=== PATIENT | male | born 1940 | race Caucasian/White ===

== ENCOUNTER 2023-08-23 07:36 | Outpatient (REF) | payer MEDICARE, SELFPAY ==
--- NOTE | ~2023-08-23 | XR_ITS ---
EXAMINATION: XR KNEE, LEFT CLINICAL INFORMATION: Left knee pain. COMPARISON: None available. TECHNIQUE: Three views of the left knee. FINDINGS: Moderate medial compartment joint space narrowing. Small tricompartmental marginal osteophytes. No acute fracture or dislocation. No concerning lytic or blastic osseous lesion. Superior and inferior patellar enthesophytes. No significant joint effusion. Atherosclerotic calcifications. XR/XR knee LT 3V IMPRESSION: Moderate medial as well as mild patellofemoral and lateral compartment osteoarthritis.
== END 2023-08-23 07:37 | disposition home or self-care (01) ==
LOC: HO.HOSX 07:36
PROVIDERS: Visit Provider Orthopaedic Surgery
DX: M25.562 Pain in left knee (principal); M79.604 Pain in right leg; M79.605 Pain in left leg; M54.50 Low back pain, unspecified
CPT/HCPCS: 73562; 99212

== ENCOUNTER 2023-08-23 07:46 | Outpatient (AMB) | payer MEDICARE, SELFPAY ==
--- NOTE | 2023-08-23 08:02 | A.OFFVIS_ITS ---
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 He also reports intermittent left thumb pain and left knee pain. He did undergo left knee arthroscopic surgery in approximately 2014. He got fairly good relief from that surgery initially. He has had cortisone injections in the past which gave him fairly good relief. He has tried Tylenol and anti-inflammatory medicines which gave him minimal relief. He also reports intermittent weakness in his legs. He has not had low back surgery in the past. He has done physical therapy which aggravated his back pain. Allergies No Known Allergies Allergy (Verified 08/23/23 08:12) Medication List - Last Reconciled 08/23/23 by Mohsen Mcqueen MD amlodipine 10 mg PO DAILY chlorthalidone 25 mg PO DAILY glipizide ER 5 mg PO DAILY lisinopril 30 mg PO DAILY metoprolol succinate ER 50 mg PO DAILY simvastatin 20 mg PO BEDTIME sitagliptin phosphate (Januvia) 25 mg PO DAILY tramadol 50 mg PO Q4H PRN zolpidem 5 mg PO BEDTIME PRN PFSH Social History (Updated 08/23/23 @ 08:12 by Corina Ozuna) Alcohol intake: never Patient Tobacco Use Status: Never used Tobacco Physical Exam Vital Signs: BMI result Body Mass Index 37.3 Const Other: Well-nourished well-developed very friendly male awake alert and oriented x3 in no acute distress Back/Spine/Pelvis Other: Low back examination shows bilateral paraspinal muscle tenderness, pain with range of motion, positive straight leg raise test bilaterally at 70 degrees, 4/5 strength with testing of his bilateral hip flexors and knee extensors Extrem Other: Left knee examination shows a minimal effusion, mild crepitus with range of motion, mild discomfort with range of motion, no instability Results Reviewed Results Reviewed: X-rays of the patient's left knee show moderate joint space narrowing, subchondral sclerosis, no acute bony abnormalities Assessment & Plan Assessment & Plan (1) Left knee pain: Code(s): M25.562 - Pain in left knee Category: Medical (2) Low back pain: Code(s): M54.50 - Low back pain, unspecified Category: Medical Plan Mr. Becerril presents with progressively worsening low back pain which radiates down both of his legs possibly due to lumbar stenosis or a disc herniation. Thus, I will send the patient for an MRI of his lumbar spine for further evaluation. Also has intermittent left knee discomfort due to degenerative joint disease. At this point the patient's knee discomfort is tolerable to him. We will hold off on a cortisone injection. I will see him back once his MRI is completed to discuss the findings and treatment options. The patient also has intermittent discomfort in his left thumb. Thus, I will have him evaluated by Dr. Hamilton. Feel free to call me at any time should questions regarding his orthopedic management arise. I spent 20 minutes in reviewing the patient's records and imaging studies, seeing the patient and documenting in the medical record. Orders: Orders XR knee LT 3V Today M25.562 - Pain in left knee MR lumbar spine wo con Today M54.50 - Low back pain, unspecified, M79.604 - Pain in right leg, M79.605 - Pain in left leg Coding Level of Care Code Est Pt Level 3 (51193) Diagnoses Left knee pain M25.562 Low back pain M54.50
[2023-08-23 08:13] VITALS: BMI 37.3
== END 2023-08-23 08:30 | disposition home or self-care (01) ==
PROVIDERS: PCP Internal Medicine; Visit Provider Orthopaedic Surgery
DX: M25.562 Pain in left knee (principal); M54.50 Low back pain, unspecified
CPT/HCPCS: 99213

== ENCOUNTER 2023-09-22 09:00 | Outpatient (AMB) | payer MEDICARE, SELFPAY ==
--- NOTE | 2023-09-22 09:18 | MHC.OFFVIS ---
Intake Visit Reasons: New prob- Left thumb pain per DR Intake Note: Philippe is a 83 yo right hand dominant male who presents today with a new problem of left thumb pain that began approximately 3 months. Patient reports having pain but it comes and goes. Patient describes having sharp pain with certain way. He mentions that he is not taking anything for the pain. Currently he is not having pain but when he does very sharp. Allergies No Known Allergies Allergy (Verified 09/22/23 09:22) HPI HPI New prob- Left thumb pain per DR: Details: Patient is an 83-year-old male who presents for an evaluation of intermittent thumb pain on the dorsal aspect of the left thumb, ongoing for approximately 2-3 months. The patient reports that he notices pain in the center of the dorsal aspect of the proximal phalanx of the left thumb occasionally with range of motion, but the patient reports that he has not had any pain at this time. The patient reports that he has no decreased range of motion from baseline, and was only concern that he may potentially have a fracture or dislocation on his x-rays. Patient denies any numbness or tingling in his left hand. No other acute complaints or concerns at this time. [facility] Social History (Updated 09/22/23 @ 09:23 by Corina Ozuna) Alcohol intake: never Patient Tobacco Use Status: Never used Tobacco Current occupational status: retired Current occupation: right hand dominant Review of Systems Const All systems reviewed & are unremarkable except as noted in HPI and below Physical Exam Extrem Other: Patient is alert, oriented, and in no acute distress. Neuro: Median, ulnar, radial nerves motor and sensory intact and sensation is normal to the tips of all digits. Vascular: Cap refill brisk Pain: Patient reports minor discomfort along the dorsal aspect of the left thumb with flexion Patient also reports some discomfort along the ulnar aspect of the left thumb with extension Completely nontender to palpation ROM: Patient is able to make a closed fist Good finger cross All other [id number]-bt-[id number] full and intact Skin: No lacerations or abrasions. General: No ecchymosis, erythema, or evidence of infection. Psych: Appears grossly normal Affect normal Attitude cooperative Results Reviewed Results Reviewed: X-rays obtained in the office today and independently reviewed by me, Austyn Mcgee PA-C, demonstrate very minor arthritic changes of the IP joint of the left thumb. No fracture or acute bony abnormality noted. Assessment & Plan Assessment & Plan (1) Pain of left thumb: Code(s): M79.645 - Pain in left finger(s) Category: Medical Plan 1. Left thumb pain At this time, due to negative x-rays and no concerning findings on physical exam, no acute medical or surgical intervention is indicated in this patient at this time Patient is offered occupational hand therapy for improvement of range of motion, strengthening, stabilization of left thumb, but declines at this time Patient is provided with comfort cool left thumb brace to wear with daytime activities while his thumb is bothering him Patient is also advised to continue with conservative pain management methods, such as rest, ice, compression, elevation, and [id number] medication namely Tylenol and ibuprofen Patient is amenable to this Patient will follow-up p.r.n. with any acute concerns Orders: Orders XR hand LT min 3V Today M79.642 - Pain in left hand Coding Level of Care Code Est Pt Level 3 (60134) Diagnoses Pain of left thumb M79.645
== END 2023-09-22 09:43 | disposition home or self-care (01) ==
PROVIDERS: PCP Internal Medicine
DX: M79.645 Pain in left finger(s) (principal)
CPT/HCPCS: 99213

== ENCOUNTER 2023-09-22 09:09 | Outpatient (REF) | payer MEDICARE, SELFPAY ==
--- NOTE | ~2023-09-22 | XR_ITS ---
EXAMINATION: XR HAND, LEFT CLINICAL INFORMATION: Left hand pain. COMPARISON: None available. TECHNIQUE: 5 views of the left hand. FINDINGS: Degenerative changes are present at the interphalangeal joints which appear most marked at the DIP joint of the fifth digit. The MCP joints are unremarkable. No significant degenerative changes are seen in the wrist. No fractures or dislocations. Marked vascular calcification is present. XR/XR hand LT min 3V IMPRESSION: Degenerative changes in the hand as described above. No acute fracture. Electronically signed by: Jose Luis Jennings MD 10/21/2023 09:58 PM EDT
== END 2023-09-22 09:10 | disposition home or self-care (01) ==
LOC: HO.HOSX 09:09
PROVIDERS: Visit Provider Orthopaedic Surgery
DX: M79.642 Pain in left hand (principal); M79.645 Pain in left finger(s)
CPT/HCPCS: 73130; 99212

== ENCOUNTER → 2023-12-09 08:36 | Outpatient (BNV) | payer MEDICARE, SELFPAY | PROVIDERS: PCP Internal Medicine; Visit Provider Radiology Diagnostic Radiology | DX: M51.362 Other intervertebral disc degeneration, lumbar region with discogenic back pain and lower extremity pain (principal) | CPT/HCPCS: 72148 ==

== ENCOUNTER 2023-12-09 08:49 | Outpatient (REF) | payer MEDICARE, SELFPAY ==
--- NOTE | ~2023-12-09 | MR_ITS ---
EXAMINATION: MR LUMBAR SPINE WITHOUT CONTRAST CLINICAL INFORMATION: Back pain radiating to right leg. COMPARISON: No prior available. TECHNIQUE: Multiplanar multisequence MR imaging of the lumbar spine was done without IV contrast. Examination was performed on a 1.5 Sindhu Siemens magnet, utilizing standard sequences. 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 FINDINGS: CORONAL ALIGNMENT: -There is a minimal levoconvex scoliosis, apex at L4. SAGITTAL ALIGNMENT: - There is a normal lumbar lordosis. -There is a 3 mm retrolisthesis of L2 on L3, degenerative. Severe intervening disc space loss with disc vacuum phenomenon. -There is a 2 mm anterolisthesis of L3 on L4. -Alignment is otherwise anatomic. LUMBOSACRAL JUNCTION: -Normal. There are 5 ffa-eqx-vkocuhc lumbar-type vertebral bodies. VERTEBRAL BODIES/BONE MARROW: -There are no compression deformities. There are no fractures. -Prominent edematous endplate changes present at L2-3 oriented more significantly to the left. -Minimal edematous endplate changes at T12-L1, and L4-5. -There are Schmorl's node is in the superior and inferior endplate of L2. -No abnormal infiltrating bone marrow signal. DISCS: -Severe loss of disc height and signal at L2-3 with disc vacuum phenomenon. -There is otherwise mild to moderate diffuse disc space loss of height and signal with relative sparing of T12-L1, and L1-2. SPINAL CANAL: -No abnormal developmental findings. CONUS MEDULLARIS: -Terminates at T12-L1 disc. Morphology and signal is normal. INTRADURAL NERVE ROOTS: - Within normal limits. Axial Disc Space Images: T12-L1: No central canal or neural foraminal narrowing. Normal facets. L1-L2: No central canal or neural foraminal narrowing. Mild degenerative hypertrophic facet changes. L2-L3: Severe degenerative disc changes with a degenerative 3 mm retrolisthesis. There is a diffuse disc osteophytic ridge complex present concentrically involving both foraminal zones left greater than right. Moderate hypertrophic degenerative facet changes are present with facet joint effusions, and mild posterior ligamentous thickening/infolding. Combination of findings is resulting in mild to moderate central canal stenosis, moderate left greater than right subarticular recess stenosis, and moderate right and severe left neural foraminal stenosis. L3-L4: Shallow concentric disc bulge present extending into both foraminal zones symmetrically. There is central annular fissuring. Moderate hypertrophic degenerative facet changes with prominent posterior ligamentous thickening/infolding. There is mild central canal narrowing, there is mild to moderate right subarticular recess narrowing, and there is moderate to severe bilateral neural foraminal stenosis. L4-L5: Shallow bulging disc present, without significant mass effect upon the thecal sac. Ptvb-xy-qyinemol hypertrophic degenerative facet changes bilaterally mild posterior ligamentous thickening/infolding. There is mild central canal narrowing, mild right greater than left subarticular recess narrowing, and moderate to severe right greater than left neural foraminal narrowing. L5-S1: Minimal physiologic disc bulge. Moderate degenerative facet changes right greater than left. No central canal stenosis. No subarticular recess stenosis. No significant neural foraminal stenosis. IMAGED SI JOINTS: -Mild degenerative changes bilaterally. PARAVERTEBRAL AND INCLUDED EXTRASPINAL SOFT TISSUES: -Incompletely imaged cyst in the right kidney midpole. Otherwise normal. MR/MR lumbar spine wo con IMPRESSION: 1. Mild to moderate lumbar spondylosis most significant at L2-3, where there is severe disc degeneration, moderate central canal stenosis, and moderate to severe bilateral subarticular recess stenosis left greater than right. Cannot exclude mild impingement of the left greater than right traversing L3 roots. 2. No additional significant central canal narrowing. 3. Multilevel degenerative facet change contributes to severe left neural foraminal stenosis at L2-3, moderate to severe bilateral at L3-4, and moderate to severe right greater than left at L4-5. 4. Prominent edematous endplate changes L2-3. 5. See see the body the report for details and ancillary findings. Electronically signed by: Bob Deras MD 02/01/2024 03:54 PM DOMINIQUE
== END 2023-12-09 08:50 | disposition home or self-care (01) ==
LOC: HO.MRI 08:49
PROVIDERS: PCP Internal Medicine; Visit Provider Orthopaedic Surgery
DX: M79.604 Pain in right leg (principal); M79.605 Pain in left leg; M54.50 Low back pain, unspecified
CPT/HCPCS: 72148

== ENCOUNTER 2024-02-07 09:04 | Outpatient (REF) | payer MEDICARE, SELFPAY | END 2024-02-07 09:05 | disposition home or self-care (01) | LOC: HO.HOSX 09:04 | PROVIDERS: PCP Internal Medicine; Referring Provider Orthopaedic Surgery; Visit Provider Physician Assistant | DX: M48.062 Spinal stenosis, lumbar region with neurogenic claudication (principal) | CPT/HCPCS: 99202 ==

== ENCOUNTER 2024-02-07 09:04 | Outpatient (AMB) | payer MEDICARE, SELFPAY ==
--- NOTE | 2024-02-07 09:05 | HO.SPINEOV ---
Vital Signs 02/07/24 09:08 Height 5 ft 7 in Weight 238 lb BMI 37.3 Intake Visit Reasons: LBP Intake Note: Mr. 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 Mcqueen, Thank you for referring Philippe to our office today. Philippe is a pleasant 83-year-old male who comes in today with a chief complaint of predominantly pain with ambulation. He does have a component of low back pain, but describes it as mild-moderate and states that it flares up 1st thing in the morning and gets better as the day progresses. When describing his pain with ambulation he states that he is able to walk a little less than half a block at a time, then he will begin experiencing a feeling of tiredness and aching pain in his bilateral anterior thighs. This worsens if he continues to ambulate. If he is able to rest for a period of time this pain will go away, and he can again walk a short distance until it flares back up. He denies any numbness/tingling associated with this pain. He reports that up until about a year ago he was a very active person, going to the horse races at [place] with his friends and walking outside regularly. Unfortunately his pain with ambulation has largely halted the meaningful activities he is able to engage in. He further reports that he is still able to do basic things like get his grocery shopping or going to the store, but he asked to utilize a shopping cart to brace himself on in order to get around. He denies any initial inciting incident and feels as though this has just slowly progressed over the last couple of years. He has been to physical therapy for this issue and felt he had to stop after a few sessions because of the pain in his thighs. He has tried dqet-cvr-ipwsanw medications including Tylenol, ibuprofen, and lidocaine patches. He has also attempted to take prescription tramadol in order to mitigate this pain without significant relief. PMH: Sling procedure to treat BPH, cardiac pacemaker placement 3 years ago, tonsillectomy with adenoid removal as a child, wisdom teeth removal at 13 years old, recurrent nephrolithiasis with stent placement (gets repeat CT scans every 2 years), knee arthroscopy. High blood pressure, T2DM (unknown last A1C), hyperlipidemia, insomnia. Social hx: The patient does not smoke, reports no substance use. Medications: Amlodipine, chlorthalidone, glipizide, lisinopril, metoprolol, simvastatin, Januvia, tramadol, zolpidem. Allergies: NKDA Physical exam: The patient has 5/5 strength in his upper and lower extremities. He is able to ambulate well, but does so slowly. He rises from a seated position via bracing himself on the chair. No significant sensational deficits. His reflexes are absent in the bilateral patella and Achilles, they are 2+ elsewhere. (-) bilateral straight leg raise, (-) Bright's, (-) clonus. Imaging review: MRI of the lumbar spine completed here at [facility] in November shows diffuse spondylosis of the lumbar spine. Most notably there is severe degenerative disc disease at L2-3 causing grade 1 spondylolisthesis alongside moderate right-sided and severe left-sided foraminal stenosis at this level. There is also a posterior disc bulge at L4-5 causing moderate right-sided foraminal stenosis at this level. Shmorl's node noted in endplate of L2. Impression: Teddy is a pleasant 83-year-old male who comes in today with a chief complaint of low-grade low back pain, and pain/difficulties with ambulation. In regards to his low back pain, it sounds more like it is osteoarthritis than it is neurogenic. It is worse 1st thing in the morning, and relieves with activity and ambulation. I believe this would be best treated with Tylenol and/or NSAIDs dependent on his ability to tolerate such medications. In terms of his difficulties with ambulation, this sounds like a classic case of neurogenic claudication due to nerve root impingement secondary to degeneration. It seems that the L2-3 level is the most likely causative agent of this. He has significant bilateral foraminal stenosis with a component of central canal stenosis, and appears to have a very slight listhesis at L2-3. We discussed the possibility of minimally invasive lumbar decompression at this level, which he was amenable to. I would like to send the patient for a set of dynamic x-rays, and obtain his primary care records in regards to his diabetes (A1C). While we do this I will discuss the case with Dr. Alexander. I will follow up with the patient regarding a surgical decision thereafter. Thank you for allowing us to care for your patient. The total time spent with this visit with this patient was 45 minutes reviewing history, physical exam, MRI imaging review, and implementation of treatment plan or further diagnostic testing. Reagan Alexander MD,PhD [facility] Coding Level of Care Code New Pt Level 4 (40340) Diagnoses Lumbar stenosis with neurogenic claudication M48.062
[2024-02-07 09:08] VITALS: BMI 37.3
--- OUTSIDE RECORDS SUMMARY | 2024-02-07 09:09 | XMS_ITS ---
Author Name [facility] Organization Unknown History of Medication Use Medication Directions Dispensed Refills Start Date End Date Status betamethasone dipropionate 0.05 % topical cream APPLY ONE APPLICATION EXTERNALLY TO RASH ON ABDOMEN ONCE OR TWICE A DAY NEEDED FOR ITCH UP TO 2 WEEKS ON, THEN 1 WEEK OFF 3 active fluorouracil 5 % topical cream APPLY SPARINGLY TO SUN-DAMAGED SKIN ON FACE AND SCALP TWO TIMES A DAY FOR 2 TO 4 WEEKS. EXPECT REDNESS, SCALING, AND IRRITATION. START 2 WEE 3 active Senna Plus 8.6 mg-50 mg tablet TAKE 1 TABLET BY MOUTH TWICE DAILY NEEDED FOR CONSTIPATION. 3 completed tramadol 50 mg tablet TAKE ONE TABLET BY MOUTH EVERY 4 HOURS NEEDED 3 active methylprednisolone 4 mg tablets in a dose pack TAKE SIX TABLETS FOR 1 DAY, THEN FIVE TABLETS FOR 1 DAY, THEN FOUR TABLETS FOR 1 DAY,THEN THREE TABLETS FOR 1 DAY, THEN TWO TABLETS FOR 1 DA 3 completed Januvia 25 mg tablet TAKE ONE TABLET BY MOUTH EVERY DAY 3 active oxycodone 5 mg capsule TAKE 1 CAPSULE BY MOUTH EVERY 4 HOURS NEEDED FOR PAIN. 3 completed sodium bicarbonate 650 mg tablet DISSOLVE AND TAKE ONE TABLET BY MOUTH FOUR TIMES A DAY 3 active Eliquis 2.5 mg tablet TAKE ONE TABLET BY MOUTH TWICE A DAY 3 active amlodipine 10 mg tablet TAKE ONE TABLET BY MOUTH EVERY DAY 3 active simvastatin 20 mg tablet TAKE ONE TABLET BY MOUTH ONCE DAILY IN THE EVENING 3 active tobramycin 0.3 %-dexamethasone 0.1 % eye drops,suspension INSTILL 1 DROP IN THE LEFT EYE FOUR TIMES A DAY FOR 10 DAYS 3 completed ketoconazole 2 % topical cream APPLY TO RASH ON GROIN TWO TIMES A DAY UNTIL CLEAR. USE WITH TRIAMCINOLONE CREAM 3 completed metoprolol succinate ER 25 mg tablet,extended release 24 hr TAKE ONE TABLET BY MOUTH EVERY DAY 3 active Kenalog 40 mg/mL suspension for injection Take 1 mL by injection route. 3 active triamcinolone acetonide 0.025 % topical cream APPLY SPARINGLY TO RASH ON GROIN TWO TIMES A DAY FOR 1-2 WEEKS. USE WITH KETOCONAZOLE 3 completed lidocaine (PF) 10 mg/mL (1 %) injection solution Take 2 mL by injection route. 3 active chlorthalidone 25 mg tablet TAKE ONE TABLET BY MOUTH EVERY DAY 3 active lisinopril 30 mg tablet TAKE 1 TABLET BY MOUTH ONCE DAILY 3 active glipizide ER 5 mg tablet, extended release 24 hr TAKE ONE TABLET BY MOUTH ONCE DAILY WITH BREAKFAST 3 active zolpidem 5 mg tablet TAKE ONE TABLET BY MOUTH EVERY DAY AT BEDTIME 3 active Problems Problem Status Onset Date Problem Type Date of Resoluti on Source Osteoarthritis of left knee joint active 2022-09-01 ProblemAct ENS_AONECT
== END 2024-02-07 10:28 | disposition home or self-care (01) ==
PROVIDERS: PCP Internal Medicine; Referring Provider Orthopaedic Surgery; Visit Provider Physician Assistant
DX: M48.062 Spinal stenosis, lumbar region with neurogenic claudication (principal)
CPT/HCPCS: 99204

== ENCOUNTER 2024-02-15 11:51 | Outpatient (REF) | payer MEDICARE, SELFPAY ==
--- NOTE | ~2024-02-15 | XR_ITS ---
EXAMINATION: XR LUMBAR SPINE 4 OR MORE VIEWS HISTORY: M48.062 - Spinal stenosis, lumbar region with neurogenic claudication COMPARISON: Correlation is made with an MRI of the lumbar spine dated 12/09/2023. FINDINGS: AP, and neutral, flexion, and extension lateral views of the lumbar spine were obtained. Osseous mineralization is normal. The vertebral bodies maintain normal height without evidence of fracture. There is slight anterolisthesis of L4 on L5 which does not change with flexion or extension. There is diffuse moderate degenerative disc disease with disc space narrowing and osteophyte formation. There is osteoarthritis of the facet joints. There is vascular calcification. XR/XR lumbar spine 4V min IMPRESSION: Moderate degenerative disc disease. Slight anterolisthesis of 6 L4 on L5 without change with flexion or extension. Electronically signed by: Davonte Greer MD 02/23/2024 07:42 AM DOMIN[facility]QUE
== END 2024-02-15 11:52 | disposition home or self-care (01) ==
LOC: HO.HOSX 11:51
PROVIDERS: Visit Provider Physician Assistant
DX: M48.062 Spinal stenosis, lumbar region with neurogenic claudication (principal)
CPT/HCPCS: 72110

== ENCOUNTER → 2024-02-15 11:53 | Outpatient (BNV) | payer MEDICARE, SELFPAY | PROVIDERS: Visit Provider Radiology Diagnostic Radiology | DX: M48.062 Spinal stenosis, lumbar region with neurogenic claudication (principal) | CPT/HCPCS: 72110 ==

== ENCOUNTER 2024-08-15 07:44 | Outpatient (AMB) | payer MEDICARE, SELFPAY ==
--- OUTSIDE RECORDS SUMMARY | 2024-08-10 08:30 | XMS_ITS | Encounter Summary ---
Author Organization [facility] Address [address] [place] [address] Care Team Providers Care Code Inspector Name Role Phone Monica Steiner MD Primary Care Provider [phone] Encounter Details Date Type Department Care Team (Latest Contact Info) Description 08/10/2024 8:30 AM EDT Ancillary Procedure [facility] - [facility] [address] [facility] [address] [place] [address] Encounter for adjustment or management of cardiac device Social History Tobacco Use Types Packs/Day Years Used Date Smoking Tobacco: Former Smokeless Tobacco: Never Alcohol Use Standard Drinks/Week Comments No 0 (1 standard drink = 0.6 oz pur e alcohol) Housing Instability Answer Date Recorde d Are you worried that in the next 2 months you may not have stable housing? Patient declined 04/02/2024 Food Access & Nutrition Answer Date Rec orded Do you have access to a vari ety of food including fruits and vegetables? Patient declined 04/02/2024 Health Literacy Answer Date Recorded How often do you need to hav e someone help you when you read instructions, pamphlets, or other written material from your doctor or pharmacy? Patient declined 04/02/2024 Caregiver: How often do you need to have someone help you when you read instructions, pamphlets, or other written material from your doctor or pharmacy? Not on file 025 Financial Risk Answer Date Recorded How hard is it for you to pa y for the very basics like food, housing, medical care, and air conditioning / heating? Patient declined 04/02/2024 Transportation Answer Date Recorded Has the lack of transportati on kept you from meetings, work, or from getting things needed for daily living? Patient declined 04/02/2024 Has the lack of transportati on kept you from medical appointments or from getting medications? Patient declined 04/02/2024 Social Isolation Answer Date Recorded How often do you feel lonely or isolated from those around you? Patient declined 04/02/2024 Food Risk Answer Date Recorded Within the past 12 months we worried whether our food would run out before we got money to buy more. Patient declined 025 Within the past 12 months th e food we bought just didn't last and we didn't have money to get more. Patient declined 03/18 Dependent Care Answer Date Recorded Do you need help finding or paying for care for your loved ones. For example, childcare worker or elderly care for an older adult? Patient declined 04/02/2024 Education Answer Date Recorded Do you think completing more education or training, like finishing a GED, going to college, or learning a trade, would be helpful for you? Patient declined 04/02/2024 Employment and Income Answer Date Recor ded During the last four weeks, have you been actively looking for work? Patient declined 04/02/2024 Living Situation Answer Date Recorded What is your living situation? 0 04/02/2024 Interpersonal Safety Answer Date Record ed Physical Abuse 04/02/2024 Verbal Abuse 04/02/2024 Sex and Gender Information Value Date Recorded Sex Assigned at Male 04/02/2024 4:57 PM EST Legal Sex Male 2:11 AM EST Gender Identity Male 04/02/2024 4:57 PM EST Sexual Orientation Straight 04/02/2024 4: 57 PM EST documented as of this encounter Plan of Treatment Upcoming Encounters Date Type Department Care Team (Late st Contact Info) Description 08/21/2024 7:15 AM EDT Appointment [facility] CT Scan [address] [place] [phone] 10/10/2024 7:40 AM EDT Office Visit [facility] - [address] [facility] [address] [place] [phone] Brittany Goldstein, PARLIAMENTARY COUNSEL [address] [place] [phone] 08/14/2025 10:00 AM EDT Ancillary Procedure [facility] - [address] [place] [phone] documented as of this encounter Procedures Procedure Name Priority Date/Time Associated Diagnosis Comments CARDIAC DEVICE CHECK- IN CLINIC- MURJ Routine 08/10/2024 11:14 AM EDT Encounter for adjustment or management of cardiac device documented in this encounter Results * CARDIAC DEVICE CHECK- IN CLINIC- MURJ (08/10/2024 11:14 AM EDT) Date Time Interrogation Session [id number] CV DEVICE CHECK Implantable Pulse Generator Electrician Front MDT CV DEVICE CHECK Implantable Pulse Generator Type IPG CV DEVICE CHECK Implantable Pulse Generator Model [place] XT SR MRI CV DEVICE CHECK Implantable Pulse Generator Serial Number [id number] CV DEVICE CHECK Implantable Pulse Generator Implant Date 20200119 CV DEVICE CHECK Battery Status Unknown CV DE VICE CHECK Branden Statistic RV Percent Paced 99.00 CV DEVICE CHECK Lead Channel Impedance Value 399 CV DEVICE CHECK Lead Channel Pacing Threshold Amplitude 2.000 CV DEVICE CHECK Lead Channel Pacing Threshold Pulse Width 1.5 CV DEVICE CHECK Branden Setting Mode (NBG Code) VVIR CV DEVICE CHECK Branden Setting Lower Rate Limit 50 CV DEVICE CHECK Date of Service 2024-08-11 CV DEVICE CHECK Anatomical Region Laterality Modality Device Interroga tion 08/10/2024 Impressions 08/14/2024 7:36 AM EDT Normal In-Office: No Events * Normal Device Function * Alerts or events: None * Battery: SEE PDF, 1 month * Sensing, impedance and thresholds reviewed and tested * Presenting Rhythm: PICKED EDGE SEWING MACHINE OPERATOR 75 bpm * No R waves @ VVI 30 bpm today * Heart Rate Histograms reviewed * Pacing and Detection Parameters were evaluated Narrative Procedure Note Vasquez Amezcua MD - 08/14/2024 IMPRESSION: Normal In-Office: No Events * Normal Device Function * Alerts or events: None * Battery: SEE PDF, 1 month * Sensing, impedance and thresholds reviewed and tested * Presenting Rhythm: PICKED EDGE SEWING MACHINE OPERATOR 75 bpm * No R waves @ VVI 30 bpm today * Heart Rate Histograms reviewed * Pacing and Detection Parameters were evaluated us Order Referral Cardiovascular CV IMPLANTABLE CAR DIAC DEVICE PROCEDURES Final Result documented in this encounter Visit Diagnoses Diagnosis Encounter for adjustment or management of cardiac device Encounter for adjustment or management of cardiac device documented in this encounter Additional Health Concerns Infection Onset Date Last Indicated Resolved Time 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
--- OUTSIDE RECORDS SUMMARY | 2024-08-15 07:46 | XMS_ITS | Clinical Summary ---
Author Organization [facility] Address [address] [place] [address] Care Team Providers Care Test Lead Name Role Phone Iron Galvez MD Primary Care Provider + Allergies No known active allergies Medications Medication Sig Dispensed Refills Start Date End Date Status ELIQUIS 5 MG TABS tablet Take 5 mg by mouth 2 (two) times a day. 3 05/31/2018 Active glipiZIDE (GLUCOTROL XL) ER 24 hr tablet 5 mg 0 06/30/2018 Active lisinopril (PRINIVIL,ZESTRIL) tablet 30 mg TAKE ONE TABLET BY MOUTH EVERY DAY 5 06/22/2018 Active metFORMIN (GLUCOPHAGE-XR) ER 24 hr tablet 500 mg 0 05/19/2018 Active simvastatin (ZOCOR) tablet 20 mg Take 20 mg by mouth every night at bedtime. 2 06/14/2018 Active ORACIT 490-640 MG/5ML SOLN DRINK 15 ML BY MOUTH TWICE A DAY 11 05/03/2018 Active zolpidem (AMBIEN) 10 MG tablet 0 06/30/2018 Active chlorthalidone (HYGROTON) 25 MG tablet TAKE ONE TABLET BY MOUTH EVERY DAY 11 06/12/2018 Active amLODIPine (NORVASC) tablet 10 mg Take 10 mg by mouth. 0 07/29/2018 Active amLODIPine (NORVASC) tablet 5 mg Take 2 tablets by mouth. 0 Active vitamin D3 (VITAMIN D3) 10 MCG (400 UNIT) tablet Take 1 capsule by mouth. 0 07/29/2018 Active colchicine 0.6 MG tablet 0 07/28/2018 Active folic acid (FOLVITE) tablet 1 mg TAKE ONE TABLET BY MOUTH EVERY DAY 0 07/29/2018 Active ketoconazole (NIZORAL) 2 % cream APPLY TO RASH ON GROIN TWO TIMES A DAY UNTIL CLEAR. USE WITH TRIAMCINOLONE. 0 12/23/2020 Active saccharomyces boulardii (FLORASTOR) 250 MG capsule Take 1 capsule by mouth. 0 07/28/2018 Active Januvia 25 MG tablet TAKE ONE TABLET BY MOUTH EVERY DAY 0 02/15/2021 Active sodium bicarbonate 650 MG tablet Take 650 mg by mouth 4 (four) times a day. 0 02/01/2021 Active triamcinolone (KENALOG) 0.025 % cream APPLY SPARINGLY TO RASH ON GROIN TWO TIMES A DAY FOR FOR 1 TO 2 WEEKS. USE WITH KETOCONAZOLE. 0 12/23/2020 Active Eliquis 2.5 MG TABS tablet Take 2.5 mg by mouth 2 (two) times a day. 0 02/15/2021 Active zolpidem (AMBIEN) 5 MG tablet Take 5 mg by mouth every night at bedtime as needed. for sleep 0 02/26/2021 Active traMADol (ULTRAM) 50 MG tablet Take 50 mg by mouth every 6 (six) hours as needed for pain. 0 Active Active Problems Problem Noted Date Diagnosed Date Arthritis of knee, left 07/13/2018 Family History Medical History Relation Name Comments Cancer Father Arthritis Mother Cancer Mother Clotting disorder Mother Heart disease Mother Hypertension Mother Arthritis Sister Cancer Sister Hyperlipidemia Sister Hypertension Sister Relation Name Status Comments Father Mother Sister Social History Tobacco Use Types Packs/Day Years Used Date Smoking Tobacco: Never Smokeless Tobacco: Never Alcohol Use Standard Drinks/Week Comments No 0 (1 standard drink = 0.6 oz pur e alcohol) Sex and Gender Information Value Date Recorded Sex Assigned at Not on file Gender Identity Not on file Sexual Orientation Not on file Job Start Date Occupation Industry Not on file Not on file Not on file Last Filed Vital Signs Vital Sign Reading Time Taken Comments Blood Pressure - - Pulse - - Temperature - - Respiratory Rate - - Oxygen Saturation - - Inhaled Oxygen Concentration - - Weight 105.7 kg (233 lb) 03/12/2021 10:47 AM EST Height 170.2 cm (5' 7 ) 03/12/2021 10:47 AM EST Body Mass Index 36.49 03/12/2021 10:47 AM EST Plan of Treatment Health Maintenance Due Date Last Done Comments Depression Screening 1950 BMI Counseling 1956 Preventative Health Evaluation 1956 DTap / Tdap / Td (1 - Tdap) 1957 Shingrix-Zoster Vaccine (1 o f 2) 1988 Fall Risk Assessment 08/03/2003 RSV Adult > 60+ Yrs or (1 - 1-dose 75+ series) 2013 Pneumococcal Vaccine (2 of 2 - PPSV23 or PCV20) 10/06/2020 10/07/2019 COVID-19 Vaccine (3 - 2023-2 5 season) 2023 05/15/2020, 03/27/2020 Influenza Vaccine (Season Ended) 2024 10/07/2019, 12/08/2018 Hepatitis B Vaccines Aged Out No long er eligible based on patient's age to complete this topic RSV Ped < 20 months Aged Out No longe r eligible based on patient's age to complete this topic Care Teams Test Lead Relationship Specialty Start Date End Date Iron Galvez MD [address] [place] [address] PCP - General Cna 07/12/18
--- OUTSIDE RECORDS SUMMARY | 2024-08-15 07:46 | XMS_ITS | Encounter Summary ---
Author Organization [facility], Address [address] [place] [address] Phone Care Team Providers Care Grain Picker Name Role Phone Monica Steiner MD Primary Care Provider [phone] Encounter Details Date Type Department Care Team (Late st Contact Info) Description 01/20/2022 Documentation Only [facility] [address] [place] [address] Bibi Mcclure [address] [place] [address] Social History Tobacco Use Types Packs/Day Years Used Date Smoking Tobacco: Never Assessed Alcohol Use Standard Drinks/Week Comments No 0 (1 standard drink = 0.6 oz pur e alcohol) Sex and Gender Information Value Date Recorded Sex Assigned at Not on file Legal Sex Male 4:31 PM EST Gender Identity Not on file Sexual Orientation Not on file documented as of this encounter Plan of Treatment Upcoming Encounters Date Type Department Care Team (Late st Contact Info) Description 08/22/2024 9:20 AM EDT Office Visit [facility] [address] [place] [address] Lewis Pruitt MD [address] [place] [address] documented as of this encounter Visit Diagnoses Not on filedocumented in this encounter Care Teams Grain Picker Relationship Specialty Start Date End Date Monica Steiner MD [address] [place] [address] PCP - General Internal Medicine 01/20/22 documented as of this encounter
--- OUTSIDE RECORDS SUMMARY | 2024-08-15 07:46 | XMS_ITS ---
Author Name [facility] [[email or web address]]P Organization Unknown History of Medication Use Medication Directions Dispensed Refills Start Date End Date Stat us Kenalog 40 mg/mL suspension for injection Take 1 mL by injection route. 09/01/2022 active lidocaine (PF) 10 mg/mL (1 %) injection solution Take 2 mL by injection route. 09/01/2022 active methylprednisolone 4 mg tablets in a dose pack TAKE SIX TABLETS FOR 1 DAY, THEN FIVE TABLETS FOR 1 DAY, THEN FOUR TABLETS FOR 1 DAY,THEN THREE TABLETS FOR 1 DAY, THEN TWO TABLETS FOR 1 DA 3 completed Senna Plus 8.6 mg-50 mg tablet TAKE 1 TABLET BY MOUTH TWICE DAILY NEEDED FOR CONSTIPATION. 3 completed amlodipine 10 mg tablet TAKE ONE TABLET BY MOUTH EVERY DAY active chlorthalidone 25 mg tablet TAKE ONE TABLET BY MOUTH EVERY DAY active Januvia 25 mg tablet TAKE ONE TABLET BY MOUTH EVERY DAY active lisinopril 30 mg tablet TAKE 1 TABLET BY MOUTH ONCE DAILY active metoprolol succinate ER 25 mg tablet,extended release 24 hr TAKE ONE TABLET BY MOUTH EVERY DAY active zolpidem 5 mg tablet TAKE ONE TABLET BY MOUTH EVERY DAY AT BEDTIME active Problems Problem Status Onset Date Problem Type Date of Resoluti on Source Osteoarthritis of left knee joint active 2022-09-01 ProblemAct [facility]NS_AONECT Encounters Encounter Type Encounter Reason Primary Diagnosis Location Date Ambulatory [facility] 09/03/2022 [facility] 09/01/2022 [facility] 09/01/2022 [facility] 09/01/2022 [facility] 08/13/2022 [facility] 04/22/2022
--- OUTSIDE RECORDS SUMMARY | 2024-08-15 07:47 | XMS_ITS | Patient Health Record ---
Author Organization [facility] Address [address] [place] [address] Care Team Providers Care Pure Pak Machine Operator Name Role Phone Monica Steiner Primary Care Provider John Alicea Unavailable [phone] Allergies No Known Allergies Results Component Value Reference Range Notes HEMOGLOBIN A1C (GLYCOHEMOGLO BIN) Reviewed date:02/28/2024 09:18:30 AM Interpretation: Performing Lab: Notes/Report: HEMOGLOBIN A1C % (HH) 5.5 HEMOGLOBIN A1C (GLYCOHEMOGLO BIN) Reviewed date:02/29/2024 05:01:10 PM Interpretation: Performing Lab: Notes/Report: HEMOGLOBIN A1C % (HH) 5.9 HEMOGLOBIN A1C (GLYCOHEMOGLO BIN) Reviewed date:05/31/2024 08:47:01 AM Interpretation: Performing Lab: Notes/Report: HEMOGLOBIN A1C % (HH) 5.9 Reason For Referral No Information Medications Medication SIG (Take, Route, Frequency, Duration) Notes Start Date End Date Status amLODIPine Besylate 10 MG 1 tablet Orall y Once a day Active Cosamin DS Not-Takin g Lisinopril 10 MG 1 tablet Orally Once a day Active glipiZIDE ER 5 MG 1 tablet with food Orally Once a day Active Chlorthalidone 25 MG 1 tablet in the mor shorty with food Orally Active Sodium Bicarbonate 650 MG as directed Orally Not-Taking Simvastatin 20 MG 1 tablet in the even ing Orally Once a day Active Eliquis 2.5 MG as directed Orally Active Januvia 25 MG as directed Orally Active Vitamin D3 Not-Takin g Zolpidem Tartrate 5 MG 1 tablet at bedti ma as needed Orally Once a day PRN Active Florastor 250 MG as directed Orally Not-Taking traMADol HCl 50 MG 1 tablet as needed Orally Once a day PRN Active Extra Depth Orthopedic Shoes, (1) Pair With (3) Pair Custom Heat Molded Multidensity Innersoles Dx: NIDDM/PVD(E11.51), Hammertoe Foot Deformity(M20.41,M20.42 ), Preulcerative Skin Lesion(s)(L85.1) Wear Daily; Duration: 365 days 12/08/2023 Active Metoprolol Succinate ER 25 MG 1 tablet Orally Once a day Active Social History Tobacco Use: Social History Observation Description Date Details (start date - stop date) Never Smoker NA - NA Alcohol Screen Question Answer Notes Did you have a drink containing alcohol in the p ast year? No Points 0 Interpretation Negative Tobacco use other than smoking: Question Answer Notes Are you an other tobacco user? No Tobacco Control (Standard) Question Answer Notes Tobacco use: Nonsmoker Additional Findings: Tobacco non-user Current no nsmoker Problems Problem Type SNOMED Code ICD Code Onset Dates Problem Status W/U Status Risk Notes Problem Acquired hammer toe of right foot (2674672283427 105) Other hammer toe(s) (acquired), right foot (M20.41) Active confirmed Problem Acquired hammer toe of left foot (7129635779282 103) Other hammer toe(s) (acquired), left foot (M20.42) Active confirmed Problem Type 2 diabetes mellitus with peripheral angiopathy (656402101) Type 2 diabetes mellitus with diabetic peripheral angiopathy without gangrene (E11.51) Active confirmed Q7(A), Q8(2B), Q9(1B,2C) Vital Signs Blood pressure diastolic 72 mm Hg 05/31/2024 Height 5ft 7in in 05/31/2024 Blood pressure systolic 130 mm Hg 05/31/2024 Weight 238 lbs 05/31/2024 BMI 37.27 kg/m2 05/31/2024 Procedures Procedure Date Ordered Date Performed Result Body Sit e 39536-SGQBOKF NAIL, 1-5 12/08/2023 N/A 36128-NNGY SKIN LESIONS, 2 TO 4 12/08/2023 N/A M0774-ZEQSJCAY DYSTROPHIC NAILS ANY # 12/08/2023 N/A 49422-TJLBHPU NAIL, 1-5 02/28/2024 N/A 88745-OTIH SKIN LESIONS, 2 TO 4 02/28/2024 N/A M1872-LSHKGJTR DYSTROPHIC NAILS ANY # 02/28/2024 N/A 79005-NHOXNPP NAIL, 1-5 05/31/2024 N/A 57727-TCIB SKIN LESIONS, 2 TO 4 05/31/2024 N/A O2621-ILMFMVUK DYSTROPHIC NAILS ANY # 05/31/2024 N/A Encounters Encounter Location Date Provider Diagnosis [address] [address] 12/08/2023 John Solis Type 2 diabetes mellitus with diabetic peripheral angiopathy without gangrene E11.51 ; Tinea unguium B35.1 ; Pain in right toe(s) M79.674 ; Pain in left toe(s) M79.675 ; Other hammer toe(s) (acquired), right foot M20.41 and Other hammer toe(s) (acquired), left foot M20.[address] [address] 02/28/2024 John Solis Type 2 diabetes mellitus with diabetic peripheral angiopathy without gangrene E11.51 ; Tinea unguium B35.1 ; Pain in right toe(s) M79.674 and Pain in left toe(s) M79.[address] [address] 05/31/2024 John Solis Type 2 diabetes mellitus with diabetic peripheral angiopathy without gangrene E11.51 ; Tinea unguium B35.1 ; Pain in right toe(s) M79.674 ; Pain in left toe(s) M79.675 ; Other hammer toe(s) (acquired), right foot M20.41 and Other hammer toe(s) (acquired), left foot M20.42 [facility] [address] [place] [address] 08/18/2023 John Solis [address] [address] 02/29/2024 John Will Assessments Encounter Date Diagnosis (ICD Code) Assessment Notes Treatment Notes Treatment Clinical Notes Section Notes 12/08/2023 Tinea unguium (ICD-10 - B35.1) 12/08/2023 Type 2 diabetes mellitus with diabetic peripheral angiopathy without gangrene (ICD-10 - E11.51) Q7(A), Q8(2B), Q9(1B,2C) 02/28/2024 Tinea unguium (ICD-10 - B35.1) 02/28/2024 Type 2 diabetes mellitus with diabetic peripheral angiopathy without gangrene (ICD-10 - E11.51) Q7(A), Q8(2B), Q9(1B,2C) 05/31/2024 Tinea unguium (ICD-10 - B35.1) 05/31/2024 Type 2 diabetes mellitus with diabetic peripheral angiopathy without gangrene (ICD-10 - E11.51) Q7(A), Q8(2B), Q9(1B,2C) 05/31/2024 Pain in right toe(s) (ICD-10 - M79.674) 12/08/2023 Pain in right toe(s) (ICD-10 - M79.674) 02/28/2024 Pain in right toe(s) (ICD-10 - M79.674) 02/28/2024 Pain in left toe(s) (ICD-10 - M79.675) 12/08/2023 Pain in left toe(s) (ICD-10 - M79.675) 05/31/2024 Pain in left toe(s) (ICD-10 - M79.675) 05/31/2024 Other hammer toe(s) (acquired), right foot (ICD-10 - M20.41) 12/08/2023 Other hammer toe(s) (acquired), right foot (ICD-10 - M20.41) Patient Educated with: DIABETIC FOOT CARE INSTRUCTIONS.p df (DIABETIC FOOT CARE INSTRUCTIONS.p df) 12/08/2023 Other hammer toe(s) (acquired), left foot (ICD-10 - M20.42) 05/31/2024 Other hammer toe(s) (acquired), left foot (ICD-10 - M20.42) 02/28/2024 Other Plan Of Treatment Pending Test Test Name Order Date 58835-OSMSLDD NAIL, 1-5 12/08/2023 48294-LFCSXNJ NAIL, 1-5 02/28/2024 21253-RNMBLGS NAIL, 1-5 05/31/2024 65630-WDPW SKIN LESIONS, 2 TO 4 06/01/19 25 59932-RSOY SKIN LESIONS, 2 TO 4 12/08/19 24 23745-MESF SKIN LESIONS, 2 TO 4 02/27/19 25 O4321-VADBQGMP DYSTROPHIC NAILS ANY # Z3952-IHRQVRQE DYSTROPHIC NAILS ANY # J4197-QDCHBXFB DYSTROPHIC NAILS ANY # Next Appt Details Provider Name:John Diaz Will , 08/31/2024 08:45:00 AM, [address] [facility], [address], [place], [address], Insurance Providers Payer Name Payer Address Payer Phone Subscriber Number Group Number Insured Name Patient Relationship to Insured Coverage Start Date Coverage End Date Medicare National [employer] [address] [place] [address] [id number] Philippe Abraham Self - patient is the insured 4 [employer] Secondary to Medicare [address] [place] [address] [id number] Philippe Abraham Self - patient is the insured Medical (General) History Medical History History ICD Code Back,Hip,and Knee pain Cancer Cataracts covid-19 Diabetic Gout Hypertension Kidney disease Scarlet fever Measles Mumps Chicken pox Hospitalization History Reason Date(Month/Year) [facility]- a week stay, covid 03/2024
--- OUTSIDE RECORDS SUMMARY | 2024-08-15 07:47 | XMS_ITS | Data Portability ---
Author Organization [place] [facility] [place] Address [address] [place] [address] Care Team Providers Care Pediatric Genetic Counselor Name Role Phone OLGA SANCHEZ Primary Care Provider Assessment Encounter Date Assessment Date Assessment LastModified by Organization Details LastModified Time 09/01/2022 09/01/2022 82-year-old male degenerative arthritis of the left knee joint. I had discussion with the patient current management. He opted for cortisone injection of the left knee. This was carried out he tolerated the procedure well aftercare instructions were discussed in detail. Follow-up visit offered 3 months follow-up exam. Patient agrees with the above-noted plan. Indirect care and treatment in conjunction with Dr. Drake Additional treatment plan discussed with the patient in detail included the following; - Provider focused nonsteroidal anti-inflammator y regimen (discussed were the pros, cons, benefits and risks as well as any black box warnings) in patients over 60 years old they should be very cautious in taking these medications due to potential decreased kidney function and or elevated blood pressure. - Analgesic pain medication for pain suppression (discussed were the pros, cons, benefits and risks as well as any black box warnings) - The use of topical pain relieving medication were discussed - The use of ice to decrease inflammation and pain - The use of assistive ambulatory devices for ambulation and fall prevention - Formal specific guided physical therapy program I reviewed my findings at length with the patient today. We discussed the nature and etiology of this problem along with current treatment options. We discussed the expected course and outcomes and what to expect. We also discussed risks and benefits. All of their questions were answered today, and there was exhibited understanding and comprehension of all that was discussed. Time Spent: 10 minutes were spent reviewing previous imaging and charting. 10 minutes were spent obtaining patient history. 5 minutes were spent on physical exam. 5minutes were spent explaining diagnosis and assessment. Today's documentation was made using voice recognition software. This note may contain grammatical errors secondary to the software. Not available 09/01/2022 09:06:55 Plan of Treatment Reminders Order Date Submit Date Provider Last Modified By Organization Details Last Modified Time Details Appointments None recorded. Lab None recorded. Referral None recorded. Procedures None recorded. Surgeries None recorded. Imaging XR, knee, 4 or more view 2022 023 [email or web address], [address], [address], [place], [address], 3 10:11:02 Medication Orders Kenalog 40 mg/mL suspension for injection 2022 023 [place] [id number] [facility], [address] [place], [address], 3 09:07:25 lidocaine (PF) 10 mg/mL (1 %) injection solution 2022 023 [place] [id number] [facility], [address] [place], [address], 3 09:07:25 Patient TargetsNo targets recorded. Patient Instructions Encounter Date Encounter Id Patient Instructions Last Modified By Organization Details Last Modified Time 09/01/2022 [id number] You have been provided with a cortisone injection in order to reduce the pain and inflammation that you are experiencing. The injection consists of two medications. Cortisone (an anti-inflammatory that will take 48-72 hours to take effect) and Lidocaine (a numbing agent that will last 2-3 hours). Please note that not everyone will have a lasting response following the injection. PATIENT INSTRUCTIONS Once the Lidocaine wears off, you may have an increase in your pain. I recommend icing the affected area for 20 minutes 3-4 times per day. It is recommended that you refrain from any high level activities using the joint or limb that was injected for approximately 24-48 hours. Normal day-to-day activities are generally not a problem. POSSIBLE SIDE EFFECTS Individuals with dark complexions may experience some skin discoloration locally at the site of the injection. There is the possibility of an increase in discomfort within 48 hours following the injection. This is called a flare . To help minimize the chances of this, please see the post-injection instructions above. There is a less than 1% chance of an infection. If you notice any signs of infection (redness, warmth, drainage, fever greater than 100 degrees) please call our office or contact us through the portal [facility]. Not available 09/01/2022 09:07:04 X-rays of the le ft knee reveal moderately severe degenerative arthritis predominantly in the medial compartments, subchondral sclerosis and osteophyte formation as well as patellofemoral joint space narrowing without acute bony abnormality. Incidental vascular calcifications best seen on lateral view. Not available 09/01/2022 09:00:11 Reason for Referral None Reported. Problems Name Problem SNOMED Code Status Onset Date Resolution Date Notes Provider Name and Address Organization Details Recorded Time Osteoarthri tis of left knee joint [id number] 09 Active 2022 TRINITY PIZARRO PA-C [address], [place], [address], [place] [facility] 09:07:09 Problem Notes None recorded. Procedures Surgical History Date Name Laterality Status Provider Name and Address Organization Details Recorded Time 09/02/19 23 Knee Joint/Bursa Asp & Inj completed TRINITY PIZARRO PA-C [address], [place], [address], [place] [facility] 09/01/2022 08:02:29 prostatectomy completed [facility] [place] [facility] 09/01/2022 09:01:44 procedure on appendix completed [facility] [place] [facility] 09/01/2022 09:01:58 refashioning of ingrowing toenail completed [facility] [place] [facility] 09/01/2022 09:02:14 extraction of cataract completed [facility] 09/01/2022 09:02:37 Male sling procedure completed [facility] [place] [facility] 09/01/2022 09:02:53 Imaging Results None recorded. Procedure Notes None recorded. Medical Equipment None Reported. Allergies No known drug allergies Medications Name Sig Start Date Stop Date Status Note LastModified by Organization Details LastModified Time fluorouraci l 5 % topical cream APPLY SPARINGLY TO SUN-DAMAG ED SKIN ON FACE AND SCALP TWO TIMES A DAY FOR 2 TO 4 WEEKS. EXPECT REDNESS, SCALING, AND IRRITATIO N. START 2 WEE active Not Available Not Available No t Available glipizide ER 5 mg tablet, extended release 24 hr TAKE ONE TABLET BY MOUTH ONCE DAILY WITH BREAKFAST active Not Available Not Available No t Available chlorthalid one 25 mg tablet TAKE ONE TABLET BY MOUTH EVERY DAY active Not Available Not Available No t Available tramadol 50 mg tablet TAKE ONE TABLET BY MOUTH EVERY 4 HOURS NEEDED active Not Available Not Available No t Available Kenalog 40 mg/mL suspension for injection Take 1 mL by injection route. 2022 active Not Available Not Available Not Avai alexandra triamcinolo ne acetonide 0.025 % topical cream APPLY SPARINGLY TO RASH ON GROIN TWO TIMES A DAY FOR 1-2 WEEKS. USE WITH KETOCONAZ OLE 09/01 completed Not Available Not Available Not Available sodium bicarbonate 650 mg tablet DISSOLVE AND TAKE ONE TABLET BY MOUTH FOUR TIMES A DAY active Not Available Not Available No t Available amlodipine 10 mg tablet TAKE ONE TABLET BY MOUTH EVERY DAY active Not Available Not Available No t Available simvastatin 20 mg tablet TAKE ONE TABLET BY MOUTH ONCE DAILY IN THE EVENING active Not Available Not Available No t Available oxycodone 5 mg capsule TAKE 1 CAPSULE BY MOUTH EVERY 4 HOURS NEEDED FOR PAIN. 09/01 completed Not Available Not Available Not Available lisinopril 30 mg tablet TAKE 1 TABLET BY MOUTH ONCE DAILY active Not Available Not Available No t Available betamethaso ne dipropionat e 0.05 % topical cream APPLY ONE APPLICATI ON EXTERNALL Y TO RASH ON ABDOMEN ONCE OR TWICE A DAY NEEDED FOR ITCH UP TO 2 WEEKS ON, THEN 1 WEEK OFF 09/01 completed Not Available Not Available Not Available zolpidem 5 mg tablet TAKE ONE TABLET BY MOUTH EVERY DAY AT BEDTIME active Not Available Not Available No t Available metoprolol succinate ER 25 mg tablet,exte nded release 24 hr TAKE ONE TABLET BY MOUTH EVERY DAY active Not Available Not Available No t Available methylpredn isolone 4 mg tablets in a dose pack TAKE SIX TABLETS FOR 1 DAY, THEN FIVE TABLETS FOR 1 DAY, THEN FOUR TABLETS FOR 1 DAY,THEN THREE TABLETS FOR 1 DAY, THEN TWO TABLETS FOR 1 DA 09/01 completed Not Available Not Available Not Available ketoconazol e 2 % topical cream APPLY TO RASH ON GROIN TWO TIMES A DAY UNTIL CLEAR. USE WITH TRIAMCINO LONE CREAM 09/01 completed Not Available Not Available Not Available tobramycin 0.3 %-dexametha sone 0.1 % eye drops,suspe nsion INSTILL 1 DROP IN THE LEFT EYE FOUR TIMES A DAY FOR 10 DAYS 09/01 completed Not Available Not Available Not Available Senna Plus 8.6 mg-50 mg tablet TAKE 1 TABLET BY MOUTH TWICE DAILY NEEDED FOR CONSTIPAT ION. 09/01 completed Not Available Not Available Not Available lidocaine (PF) 10 mg/mL (1 %) injection solution Take 2 mL by injection route. 2022 active Not Available Not Available Not Avai lable Januvia 25 mg tablet TAKE ONE TABLET BY MOUTH EVERY DAY active Not Available Not Available No t Available Eliquis 2.5 mg tablet TAKE ONE TABLET BY MOUTH TWICE A DAY active Not Available Not Available No t Available Vitals Date Recorded Body height Body mass index (BMI) Body weight Provider Name and Address Organization Details Last Updated DateTime 09/01/2022 172.72 cm 36.2 kg/m2 789404.[address] [place] [facility] 09/01/2022 08:57:59 Social History None recorded. Functional Status Question Answer Note LastModified by Organization D etails LastModified Time Do you or have you ever used any other forms of tobacco or nicotine? No Information not available 09/01/2022 Mental Status None recorded. Family History Relationship Description Onset Age of this Age Resolved Age Notes LastModified by Organization Details LastModified Time Mother Arthritis Not available 09/01/2022 08:59:51 Mother Blood coagulation disorder Not available 2022 09:00:01 Mother Family history of malignant neoplasm Not available 2022 09:00:21 Mother Heart disease Not available 2022 09:00:57 Mother Hypertensive disorder Not available 2022 09:01:17 Sister Arthritis Not available 09/01/2022 08:59:51 Sister Family history of malignant neoplasm Not available 2022 09:00:21 Sister Heart disease Not available 2022 09:00:57 Sister Hypertensive disorder Not available 2022 09:01:17 Father Family history of malignant neoplasm prosta te Not available 09/01/2022 09:00:21 Medical History Condition Response Diabetes Y Heart Disease Y Gout Y Cancer Y Osteopenia Y Hypertension Y Kidney Disease Y Past Encounters Encounter ID Performer Location Encounter Start Date Encounter Closed Date Diagnosis/Indication Diagnosis SNOMED-CT Code Diagnosis ICD10 Code Diagnosis Note [id number] SANDR[facility] LEE [facility] [address] [facility] [address] [place] [address] 09/01/2022 08:27:10 09/01/2022 09:07:40 Pain of left knee joint [id number] 84616 M25.562 Osteoarthr itis of left knee joint [id number] 86298 M17.12 Health Concerns Section Related Observation LastModified by Organization Detai ls LastModified Time None Recorded Concern Status LastModified by Organization Details LastModified Time None Recorded Advance Directives Directive None Recorded Payers Insurance Date Sequence Insurance Name Policy Number Policy Anne Covered Member ID Anne Member ID Guarantor Name 11/29/2022 2 [employer] (MEDICARE SUPPLEMENT) Philippe Thacker [id number] Philippe Thacker 11/29/2022 1 [place] [employer] Philippe Thacker [id number] Philippe Thacker Notes Date Note Type Note Provider Name and Address Organization Details Recorded Time 09/01/2022 text/html L knee. Last see n 03/12/21 for L knee. Cortisone administered at that visit. Requesting another cortisone injection. Xrays today. 82-year-old male last seen on the above-noted date and treated with cortisone for left knee pain. He states this gave him good relief however he has return of symptoms of medial joint space pain. Denies any falls denies any recent injury. No interval change in history here for evaluation treatment. TRINITY PIZARRO PA-C [address] [facility] [address], [place], [address], [place] [facility] 09/01/2022 09:07:51
--- NOTE | 2024-08-15 07:54 | MHC.OFFVIS ---
Vital Signs 08/15/24 07:56 Height 5 ft 7 in Weight 238 lb BMI 37.3 Intake Visit Reasons: Inj-Left knee cortisone inj. Intake Note: Mr. Becerril presents with progressively worsening left knee pain. He describes his pain as sharp in nature. His pain has gotten worse over the last few months in spite of continued non operative treatments. He has had cortisone injections in the past which gave him fairly good relief. He wishes to hold off on surgery if at all possible. He has tried Tylenol and anti-inflammatory medicines which gave him mild relief. Allergies No Known Allergies Allergy (Verified 08/15/24 07:56) Medication List - Last Reconciled 08/15/24 by Mohsen Mcqueen MD amlodipine 10 mg PO DAILY chlorthalidone 25 mg PO DAILY glipizide ER 5 mg PO DAILY lisinopril 30 mg PO DAILY metoprolol succinate ER 50 mg PO DAILY simvastatin 20 mg PO BEDTIME sitagliptin phosphate (Januvia) 25 mg PO DAILY tramadol 50 mg PO Q4H PRN zolpidem 5 mg PO BEDTIME PRN PFSH Social History (Updated 09/22/23 @ 09:23 by Corina Ozuna) Alcohol intake: never Patient Tobacco Use Status: Never used Tobacco Current occupational status: retired Current occupation: right hand dominant Physical Exam Vital Signs: BMI result Body Mass Index 37.3 Const Other: Well-nourished well-developed very friendly male awake alert and oriented x3 in no acute distress Extrem Other: Left knee examination shows a minimal effusion, palpable crepitus with range of motion, pain with range of motion, no instability Office Procedures AMB Joint Injection/Aspiration Joint Injection/Aspiration Primary Site: left knee Prep: site was prepped using aseptic technique Injected: 40 mg of, DepoMedrol and 1% plain lidocaine Procedure: The patient tolerated the procedure well Coding 41207 - Large joint Procedure code (CPT) selection complete Results Reviewed Results Reviewed: X-rays of the patient's left knee show joint space narrowing, subchondral sclerosis, no acute bony abnormalities Assessment & Plan Assessment & Plan (1) Osteoarthritis of left knee: Code(s): M17.12 - Unilateral primary osteoarthritis, left knee Category: Medical Plan Mr. Becerril presents with left knee pain due to degenerative joint disease. The risks and benefits of a left knee cortisone injection were discussed at length with the patient. The patient wished to proceed. He tolerated the injection well. He will continue with his activity modifications. Will contact me prior to his follow-up appointment in 3 months should any questions or concerns arise. Feel free to call me at any time should questions regarding his orthopedic management arise. I spent 20 minutes in reviewing the patient's records and imaging studies, seeing the patient and documenting in the medical record. Orders: Orders AMB Joint Injection/Aspiration Today M17.12 - Unilateral primary osteoarthritis, left knee Coding Level of Care Code Est Pt Level 3 (58100) Complex EM visit Add On G2211 Diagnoses Osteoarthritis of left knee M17.12 CPT Codes Coding - 46316 Large joint: 22652 - Large joint ([id number])
[2024-08-15 07:56] VITALS: BMI 37.3
== END 2024-08-15 08:17 | disposition home or self-care (01) ==
LOC: HO.HOS 07:45
PROVIDERS: Visit Provider Orthopaedic Surgery
DX: M17.12 Unilateral primary osteoarthritis, left knee (principal)
CPT/HCPCS: 20610; 99213

== ENCOUNTER → 2024-08-15 07:44 | Outpatient (BNVA) | payer MEDICARE, SELFPAY | PROVIDERS: Visit Provider Orthopaedic Surgery | DX: M17.12 Unilateral primary osteoarthritis, left knee (principal); M25.562 Pain in left knee | CPT/HCPCS: 20610; 99212; J1010; J2003 ==